=== PATIENT | female | born 1995 ===

== ENCOUNTER 2022-06-24 11:26 | Emergency (ER) | payer MEDICAID, SELFPAY ==
--- NOTE | ~2022-06-24 | XR_ITS ---
EXAMINATION: XR CHEST CLINICAL INFORMATION: Cough. COMPARISON: None available. TECHNIQUE: 2 views of the chest were obtained. FINDINGS: No significant abnormality is noted involving the heart, lungs, mediastinum, bony thorax or soft tissues. XR/XR chest 2V IMPRESSION: Unremarkable chest examination.
[2022-06-24 12:42] VITALS: BP 146/85; PULSE 94; RESP 20; TEMP 36.7; O2SAT 99; BMI 30.7
--- NOTE | 2022-06-24 12:57 | ED.ASTHMA ---
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 Patient states that they have had a cough for awhile now and their inhalers are no longer working at home. Patient denies any dizziness, lightheadedness, abdominal pain, nausea, vomiting, fever, chills, blurry vision, double vision, loss of vision, chest pain, back pain, night sweats, pain with urination, increased urinary frequency, increased urinary urgency, blood in her urine or stool, syncope or a near syncopal episode, recent trauma or falls, bowel incontinence, bladder incontinence, bowel retention, bladder retention, or any other complaints at this time. <ROXANE Vasquez - Last Filed: 06/24/22 16:04> Onset (ago): day(s) <ROXANE Vasquez Last Filed: 06/24/22 16:04> Severity: mild <ROXANE Vasquez Last Filed: 06/24/22 16:04> Related Data Current Asthma Therapy: inhaled bronchodilator <ROXANE Vasquez Last Filed: 06/24/22 16:04> Home Medications: Previous Rx's Medication Instructions Recorded albuterol sulfate 90 mcg/actuation 1 inh inhalation QID PRN shortness 06/24/22 aerosol inhaler of breath or wheezing #8.5 grams benzonatate 100 mg capsule 100 mg PO BID PRN cough 7 days #14 06/24/22 caps doxycycline hyclate 100 mg tablet 100 mg PO BID 7 days #14 tabs 06/24/22 prednisone 20 mg tablet 20 mg PO DAILY 7 days #7 tabs 06/24/22 <Lizzie Thomas NP - Last Filed: 06/24/22 13:00> Allergies/Adverse Reactions: Allergies Allergy/AdvReac Type Severity Reaction Status Date / Time No Known Allergies Allergy Verified 06/24/22 12:41 [No Known Allergies*] <Lizzie Thomas NP - Last Filed: 06/24/22 13:00> Review of Systems Constitutional: Constitutional: Reports no additional constitutional complaints, Denies chills, Denies fever(s) and Denies night sweats <ROXANE Vasquez - Last Filed: 06/24/22 16:04> Eyes: Eyes: Reports no additional eye complaints, Denies blurry vision, Denies change in vision, Denies diplopia, Denies eye discharge, Denies loss of vision and Denies eye pain <ROXANE Vasquez - Last Filed: 06/24/22 16:04> ENT: Denies dizziness <ROXANE Vasquez Last Filed: 06/24/22 16:04> Cardiovascular: Cardiovascular: Reports no additional cardiovascular complaints, Denies chest pain, Denies lightheadedness, Denies Loss of Consciousness and Denies dyspnea <ROXANE Vasquez - Last Filed: 06/24/22 16:04> Respiratory: Respiratory: Reports no additional respiratory complaints, Reports cough and Denies dyspnea <ROXANE Vasquez Last Filed: 06/24/22 16:04> Gastrointestinal: Gastrointestinal: Reports no additional gastrointestinal complaints, Denies abdominal pain, Denies melena, Denies hematochezia, Denies change in bowel habits and Denies change in stool character <ROXANE Vasquez Last Filed: 06/24/22 16:04> Genitourinary: Genitourinary: Denies hematuria, Denies urinary frequency, Denies dysuria, Denies urinary incontinence, Denies urinary hesitancy and Denies urinary urgency <ROXANE Vasquez Last Filed: 06/24/22 16:04> Musculoskeletal: Musculoskeletal: Reports no additional musculoskeletal complaints, Denies numbness and Denies tingling <ROXANE Vasquez - Last Filed: 06/24/22 16:04> Neurologic: Denies dizziness, Denies loss of vision, Denies numbness and Denies tingling <ROXANE Vasquez - Last Filed: 06/24/22 16:04> Psychiatric: Psychiatric: Reports no additional psychiatric complaints <ROXANE Vasquez - Last Filed: 06/24/22 16:04> Endocrine: Endocrine: Reports no additional endocrine complaints <ROXANE Vasquez - Last Filed: 06/24/22 16:04> Hematologic/Lymphatic: Hematologic/Lymphatic: Reports no additional hematologic/lymphatic complaints <ROXANE Vasquez - Last Filed: 06/24/22 16:04> Allergic/Immunologic: Allergic/Immunologic: Reports no additional allergic/immunologic complaints <ROXANE Vasquez - Last Filed: 06/24/22 16:04> PMFSH Past Medical History Attestation statement: The following information was validated with the patient. <ROXANE Vasquez - Last Filed: 06/24/22 16:04> Source: old records reviewed and nursing notes reviewed <ROXANE Vasquez - Last Filed: 06/24/22 16:04> Social History Social History: Social History Advance Directives: No Advance Directives Information Provided: Yes <Lizzie Thomas NP - Last Filed: 06/24/22 13:00> Physical Exam Vital Signs: Vital Signs: Last Vital Signs Temp 98.1 F 06/24/22 12:42 Pulse 94 06/24/22 12:42 Resp 06/24/22 12:42 BP 146/85 H 06/24/22 12:42 Pulse Ox 99 06/24/22 12:42 O2 Del Method Room Air 06/24/22 12:42 BMI result Body Mass Index 30.7 <Lizzie Thomas NP - Last Filed: 06/24/22 13:00> Vital Signs: Last Vital Signs Temp 98.1 F 06/24/22 12:42 Pulse 94 06/24/22 12:42 Resp 06/24/22 12:42 BP 146/85 H 06/24/22 12:42 Pulse Ox 99 06/24/22 12:42 O2 Del Method Room Air 06/24/22 12:42 BMI result Body Mass Index 30.7 <ROXANE Vasquez - Last Filed: 06/24/22 16:04> Const: General: cooperative, no acute distress, alert and awake <ROXANE Vasquez - Last Filed: 06/24/22 16:04> Nutritional Appearance: well nourished <ROXANE Vasquez - Last Filed: 06/24/22 16:04> Orientation/consciousness: patient oriented x3 <ROXANE Vasquez - Last Filed: 06/24/22 16:04> Limitations: no limitations <ROXANE Vasquez - Last Filed: 06/24/22 16:04> HEENT: Head: Yes normal to inspection and Yes atraumatic <ROXANE Vasquez - Last Filed: 06/24/22 16:04> Ears: hearing grossly normal bilaterally and external ears normal <ROXANE Vasquez - Last Filed: 06/24/22 16:04> General nose exam: Normal external nose present, no nasal discharge noted and no epistaxis <Uyen Barakat PA - Last Filed: 06/24/22 16:04> Face and sinus: Yes normal facial exam, No abrasion and No laceration <ROXANE Vasquez - Last Filed: 06/24/22 16:04> Mouth: Normal oral and palatal mucosa present, no drooling and no muffled voice <ROXANE Vasquez - Last Filed: 06/24/22 16:04> Eyes: General: appearance normal, both eyes and all related structures <ROXANE Vasquez - Last Filed: 06/24/22 16:04> Periorbital: periorbital findings normal <ROXANE Vasquez - Last Filed: 06/24/22 16:04> Eyelids: Yes eyelids normal <ROXANE Vasquez - Last Filed: 06/24/22 16:04> Conjunctivae: conjunctivae normal <ROXANE Vasquez - Last Filed: 06/24/22 16:04> Pupils: Equal, round and reactive pupils present <ROXANE Vasquez - Last Filed: 06/24/22 16:04> EOM: EOMs intact bilaterally <Uyen Barakat PA - Last Filed: 06/24/22 16:04> Neck: Neck: Yes normal visual inspection, Yes full ROM and Yes no lymphadenopathy <Uyen Barakat PA - Last Filed: 06/24/22 16:04> Chest: Chest palpation & inspection: normal inspection of the chest <Uyen Barakat PA - Last Filed: 06/24/22 16:04> Resp: Effort & Inspection: normal respiratory effort and able to speak in complete sentences <Uyen Barakat PA - Last Filed: 06/24/22 16:04> Auscultation: diminished lung sounds diffuse <Uyen Barakat PA - Last Filed: 06/24/22 16:04> GI: Inspection: Yes normal to inspection <Uyen Barakat PA - Last Filed: 06/24/22 16:04> Neuro: General: patient oriented x3 and moves all extremities <Uyen Barakat PA - Last Filed: 06/24/22 16:04> Cranial nerves: Yes Equal, round and reactive pupils present <Uyen Barakat PA - Last Filed: 06/24/22 16:04> Cognition (Neuro): normal cognition <Uyen Barakat PA - Last Filed: 06/24/22 16:04> Motor exam (neuro): 5/5 motor strength present throughout <Uyen Barakat PA - Last Filed: 06/24/22 16:04> Sensory Exam: Normal double simultaneous stimulation for sensation <Uyen Barakat PA - Last Filed: 06/24/22 16:04> Coordination: [id number] test normal <Uyen Barakat PA - Last Filed: 06/24/22 16:04> Extrem: General: Yes normal to inspection, Yes full ROM and Yes capillary refill normal <Uyen Barakat PA - Last Filed: 06/24/22 16:04> Psych: Appearance: grossly normal <Uyen Barakat PA - Last Filed: 06/24/22 16:04> Mental Status: mental status grossly normal <Uyen Barakat PA - Last Filed: 06/24/22 16:04> Affect: normal affect <Uyen Dickersonrohini PA - Last Filed: 06/24/22 16:04> Attitude: cooperative <ROXANE Vasquez - Last Filed: 06/24/22 16:04> Thought process: Normal thought process present <ROXANE Vasquez - Last Filed: 06/24/22 16:04> Thought content: Normal thought content present <ROXANE Vasquez - Last Filed: 06/24/22 16:04> Insight: Good insight present (Psych) <ROXANE Vasquez - Last Filed: 06/24/22 16:04> Course Course Course Narrative: This is a rapid medical exam. deferred additional HPi, ROS, PE to primary provider. 27 yo female with history of asthma with cough, congestion, headache, sneezing x 2 days. Using albuterol/nebs with continued symptoms. Usually triggered by allergies. Ran out of nasal spray. Brother is sick at home Will check COVID screen VSS <Lizzie Thomas NP - Last Filed: 06/24/22 13:00> Medications Administered Discontinued Medications Generic Name Dose Route Start Last Admin Trade Name Freq PRN Reason Stop Dose Admin Methylprednisolone Sodium Succinate 60 mg 06/24/22 13:12 06/24/22 13:26 Methylprednisolone Sod Succ 125 Mg/2 Ml Vial IM 06/24/22 13:13 60 mg ONCE ONE Administration <Lizzie Thomas NP - Last Filed: 06/24/22 13:00> Medications Administered Discontinued Medications Generic Name Dose Route Start Last Admin Trade Name Freq PRN Reason Stop Dose Admin Methylprednisolone Sodium Succinate 60 mg 06/24/22 13:12 06/24/22 13:26 Methylprednisolone Sod Succ 125 Mg/2 Ml Vial IM 06/24/22 13:13 60 mg ONCE ONE Administration <ROXANE Vasquez - Last Filed: 06/24/22 16:04> Medical Decision Making Medical Decision Making MDM Narrative: Patient is a 27 year old assigned female at with a history of asthma presenting to the emergency department today with a cough. Patient's physical exam showed diminished lung sounds throughout but was otherwise unremarkable. Patient's chest x-ray showed no acute process. Patient's COVID-19 swab was negative. I explained my physical exam findings as well as all test results to the patient. I answered all questions asked by the patient. Patient received IM Solu-medrol which she stated helped her symptoms significantly. I stressed the importance of the patient taking her medication as prescribed. I stressed the importance of the patient following up with her primary care provider. I stressed the importance of the patient returning to the emergency department immediately if her symptoms were to worsen or if she were to develop any dizziness, shortness of breath, difficulty breathing, chest pain, blurry vision, loss of vision, nausea, vomiting, abdominal pain, fever, chills, back pain, or any other complaints. Patient verbalized agreement and understanding with this treatment plan and discharge. <ROXANE Vasquez - Last Filed: 06/24/22 16:04> Differential Diagnosis Differential Diagnoses: The differential diagnosis associated with the presentation includes <ROXANE Vasquez - Last Filed: 06/24/22 16:04> asthma exacerbation <ROXANE Vasquez - Last Filed: 06/24/22 16:04> Lab Data MDM Lab Attestation statement: I reviewed the patient's lab results. <ROXANE Vasquez - Last Filed: 06/24/22 16:04> Labs: Lab Results 06/24/22 Range/Units 13:14 COVID-19 ([facility]) Negative (Negative) COVID-19 Clin Com See Note <Lizzie Thomas NP - Last Filed: 06/24/22 13:00> Lab Results 06/24/22 Range/Units 13:14 COVID-19 ([facility]) Negative (Negative) COVID-19 Clin Com See Note <ROXANE Vasquez - Last Filed: 06/24/22 16:04> Independent Interpretation I performed an independent interpretation of an: Plain X-Ray <ROXANE Vasquez - Last Filed: 06/24/22 16:04> Interpretation: My interpretation is in agreement with the radiologist's impression of this imaging study. EXAMINATION: XR CHEST CLINICAL INFORMATION: Cough. COMPARISON: None available. TECHNIQUE: 2 views of the chest were obtained. FINDINGS: No significant abnormality is noted involving the heart, lungs, mediastinum, bony thorax or soft tissues. XR/XR chest 2V IMPRESSION: Unremarkable chest examination. Dictated By: Naif Bryant MD Signed By: Electronically signed by Naif Bryant MD 06/24/22 1426 <ROXANE Vasquez - Last Filed: 06/24/22 16:04> Discharge Plan Discharge Clinical Impression: Asthma with acute exacerbation <Lizzie Thomas NP - Last Filed: 06/24/22 13:00> Patient Disposition: Home, Self-Care <Lizzie Thomas NP - Last Filed: 06/24/22 13:00> Instructions: Asthma (DC) <Lizzie Thomas NP - Last Filed: 06/24/22 13:00> Additional Instructions: Follow up with your primary care provider. Return to the emergency department immediately if your symptoms worsen or if you develop any dizziness, shortness of breath, difficulty breathing, chest pain, blurry vision, loss of vision, nausea, vomiting, abdominal pain, fever, chills, back pain, or any other complaints. Anahi un seguimiento con judd proveedor de atenci?n primaria. Regrese al departamento de emergencias de inmediato si mindy s?ntomas empeoran o si presenta mareos, falta de aire, dificultad para respirar, dolor de pecho, visi?n borrosa, p?rdida de la visi?n, n?useas, v?mitos, dolor abdominal, fiebre, escalofr?os, dolor de espalda o cualquier otras quejas. <Lizzie Thomas NP - Last Filed: 06/24/22 13:00> Prescriptions: New prednisone 20 mg tablet 20 mg PO DAILY 7 Days Qty: 7 0RF benzonatate 100 mg capsule 100 mg PO BID PRN (Reason: cough) 7 Days Qty: 14 0RF doxycycline hyclate 100 mg tablet 100 mg PO BID 7 Days Qty: 14 0RF albuterol sulfate 90 mcg/actuation HFA aerosol inhaler 1 inh inhalation QID PRN (Reason: shortness of breath or wheezing) Qty: 8.5 0RF <Lizzie Thomas NP - Last Filed: 06/24/22 13:00> Referrals: [facility] [Provider Group] (Call to establish and follow up with a primary care provider. If you already have a primary care provider, please follow up with them. Llame para establecer y hacer un seguimiento con un proveedor de atenci?n primaria. Si ya tiene un proveedor de atenci?n primaria, anahi un seguimiento con ?l.) [facility] [facility] [place] [Provider Group] (Call to establish and follow up with a primary care provider. If you already have a primary care provider, please follow up with them. Llame para establecer y hacer un seguimiento con un proveedor de atenci?n primaria. Si ya tiene un proveedor de atenci?n primaria, anahi un seguimiento con ?l.) [facility] [Provider Group] (Call to establish and follow up with a primary care provider. If you already have a primary care provider, please follow up with them. Llame para establecer y hacer un seguimiento con un proveedor de atenci?n primaria. Si ya tiene un proveedor de atenci?n primaria, anahi un seguimiento con ?l.) [facility] [Physician] - (Call to establish and follow up with a primary care provider. If you already have a primary care provider, please follow up with them. Llame para establecer y hacer un seguimiento con un proveedor de atenci?n primaria. Si ya tiene un proveedor de atenci?n primaria, anahi un seguimiento con ?l.) <Lizzie Thomas NP - Last Filed: 06/24/22 13:00> Stand Alone Forms: Work/School Release <Lizzie Thomas NP - Last Filed: 06/24/22 13:00> Interventions: ED Discharge Assessment Last Done: 06/24/22 14:09 <Lizzie Thomas NP - Last Filed: 06/24/22 13:00> Discharge Date/Time: 06/24/22 14:10 <Lizzie Thomas NP - Last Filed: 06/24/22 13:00> Print Language: Romanian <Lizzie Thomas NP - Last Filed: 06/24/22 13:00>
[2022-06-24] MEDS: methylPREDNISolone Sod Succ 125 MG/2 ML VIAL 60 MG IM (13:26)
[2022-06-24 13:39] LABS: COVID-19 Test Negative (Negative); IDNOW Serial# BCCEAD1C
== END 2022-06-24 14:10 | disposition home or self-care (01) ==
PROVIDERS: Nurse Practitioner Family; Emergency Provider Student in an Organized Health Care Education/Training Program
DX: J45.901 Unspecified asthma with (acute) exacerbation (principal); Z20.822 Contact with and (suspected) exposure to COVID-19; Z20.828 Contact with and (suspected) exposure to other viral communicable diseases; Z79.899 Other long term (current) drug therapy
CPT/HCPCS: 71046; 87635; 96372; 99282; 99284; J2930

== ENCOUNTER 2022-10-30 09:51 | Emergency (ER) | payer MEDICAID, SELFPAY ==
[2022-10-30 09:54] VITALS: BP 139/99; PULSE 87; RESP 19; TEMP 36.6; O2SAT 99; BMI 29.6
[2022-10-30 10:26] LABS: COVID-19 Test Positive (Negative); IDNOW Serial# 9DB6401D
[2022-10-30 10:35] LABS: IDNOW Serial# 08D9AD1C; Influenza A Negative (Negative); Influenza B2 Negative (Negative)
--- NOTE | 2022-10-30 11:27 | ED_ITS ---
HPI - URI/Sore Throat General Chief Complaint: Upper Respiratory Symptoms Stated Complaint: sore throat fever Time Seen by Provider: 10/30/22 11:05 Source: patient Mode of arrival: ambulatory Limitations: no limitations History of Present Illness HPI Narrative: 27 yo Mongolian speaking female who presents to the ER for evaluation of 3 days of sore throat, headaches, body aches, intermittent fevers and cough. Patient denies any known sick contacts. 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 She states she is vaccinated for COVID x2. She denies any shortness of breath, difficulty breathing, chest pain, nausea, vomiting, diarrhea, abdominal pain. She does report decreased appetite. MD elicited complaint: fever, cough and nasal congestion Onset (ago): day(s) (3) Consistency: progressively worsening Description of mucous: clear Able to tolerate fluids by mouth: Yes Exacerbating factors: exertion Relieving factors: OTC cold medicine Associated symptoms: fever, myalgias, headache, nasal congestion, sore throat and cough Treatments prior to arrival: none Related Data Previous Rx's Medication Instructions Recorded albuterol sulfate 90 mcg/actuation 1 inh inhalation QID PRN shortness 06/24/22 aerosol inhaler of breath or wheezing #8.5 grams benzonatate 100 mg capsule 100 mg PO BID PRN cough 7 days #14 06/24/22 caps doxycycline hyclate 100 mg tablet 100 mg PO BID 7 days #14 tabs 06/24/22 prednisone 20 mg tablet 20 mg PO DAILY 7 days #7 tabs 06/24/22 Allergies Allergy/AdvReac Type Severity Reaction Status Date / Time No Known Allergies Allergy Verified 10/30/22 09:54 [No Known Allergies*] Review of Systems Review of Systems: Yes all other systems are reviewed and are negative [facility] Social History Social History Advance Directives: No Advance Directives Information Provided: No Physical Exam Vital Signs: Vital Signs: Last Vital Signs Temp 98 F 10/30/22 09:54 Pulse 87 10/30/22 09:54 Resp 19 10/30/22 09:54 BP 139/99 H 10/30/22 09:54 Pulse Ox 99 10/30/22 09:54 O2 Del Method Room Air 10/30/22 09:54 BMI result Body Mass Index 29.6 Appearance: Alert. Oriented X3. No acute distress. Head: normocephalic, atraumatic. Eyes: Pupils equal, round and reactive to light. ENT: Pharynx normal. No tonsillar swelling or exudate. Neck: Normal inspection. Neck supple. CVS: Normal heart rate and rhythm. Pulses normal. Respiratory: No respiratory distress. Breath sounds normal. Skin: Skin warm and dry. Normal skin color. Normal skin turgor. No rashes. Extremities: No lower extremity edema. No joint swelling. no calf swelling or tenderness Neuro/psych: Oriented X 3. Grossly normal, nonfocal. Normal speech and cognition. Medical Decision Making Medical Decision Making [facility] Narrative: 27-year-old otherwise healthy female presents to the ER for evaluation of 3 days of URI symptoms. Vital signs are stable on arrival. Physical exam is unremarkable. Patient found to have COVID-19. She is vaccinated. She is low risk. We discussed diagnosis, symptomatic management, return precautions, using therapeutic support staff. At this time patient is stable for discharge home. Work note provided. Differential Diagnosis Differential Diagnoses: The differential diagnosis associated with the presentation includes strep, covid, flu, rsv, other viral syndrome, bronchitis, pneumonia, no evidence of peritonsillar abcsess or retropharyngeal abscess Lab Data [facility] Lab Attestation statement: I reviewed the patient's lab results. Labs: Lab Results 10/30/22 Range/Units 10:10 COVID-19 ([facility]) Positive A (Negative) COVID-19 Clin Com See Note Influenza Type A ([facility]) Negative (Negative) Influenza Type B ([facility]) Negative (Negative) Influenza A & B Note See Note External Record Review External record reviewed: Outpatient record and Prior outpatient labs Tests considered The following testing was considered but not selected: Consider chest x-ray however management would not change. Prescription Management I considered prescription management with: Antiviral Critical Care Time Critical Care Time Critical Care Time: No Discharge Plan Discharge Clinical Impression: COVID-19 Patient Disposition: Home, Self-Care Instructions: Covid-19 Viral Syndrome and Novel Coronavirus (ED) Hey/Ath Additional Instructions: You were found to be COVID-19 POSITIVE today. Your exam and oxygen levels were normal. Rest. Drink plenty of fluids. Do not go out in public while you are not feeling well. Take over the counter cold/flu medications as needed for your symptoms. Take Tylenol and/or Motrin as needed for fevers and body aches. Follow up with your doctor this week. If you develop new or worsening symptoms call 911 or come back to the ER for further evaluation. Se descubri? que hoy eres POSITIVO para COVID-19. Judd examen y niveles de ox?stacie fueron normales. Descansar. Beber mucho l?quido. No salgas en p?blico mientras no te sientas zaki. [place] medicamentos de venta manuel para el resfriado o la gripe seg?n sea necesar io para mindy s?ntomas. [place] Tylenol y/o Motrin seg?n sea necesario para la fiebre y los ignacio corporales. Yoly un seguimiento con judd m?dico esta semana. Si desarrolla s?ntomas nuevos o que empeoran, llame al 911 o regrese a la marnie de emergencias para gris evaluaci?n adicional. Prescriptions: No Action prednisone 20 mg tablet 20 mg PO DAILY 7 Days Qty: 7 0RF benzonatate 100 mg capsule 100 mg PO BID PRN (Reason: cough) 7 Days Qty: 14 0RF doxycycline hyclate 100 mg tablet 100 mg PO BID 7 Days Qty: 14 0RF albuterol sulfate 90 mcg/actuation HFA aerosol inhaler 1 inh inhalation QID PRN (Reason: shortness of breath or wheezing) Qty: 8.5 0RF Stand Alone Forms: Work/School Release Print Language: Mongolian
== END 2022-10-30 11:50 | disposition home or self-care (01) ==
PROVIDERS: Emergency Provider Emergency Medicine
DX: U07.1 COVID-19 (principal); Z79.899 Other long term (current) drug therapy
CPT/HCPCS: 87502; 87635; 99283

== ENCOUNTER 2023-12-18 21:26 | Emergency (ER) | payer MEDICAID, SELFPAY ==
[2023-12-18 21:29] VITALS: BP 144/83; PULSE 92; RESP 16; TEMP 36.9; O2SAT 98; BMI 32.0
== END 2023-12-19 00:24 | disposition left against medical advice (07) ==
PROVIDERS: Emergency Provider Emergency Medicine
DX: H92.01 Otalgia, right ear (principal)
CPT/HCPCS: 99281

== ENCOUNTER 2024-03-09 20:57 | Emergency (ER) | payer OTHER, SELFPAY ==
--- NOTE | 2024-03-09 | ECG_ITS ---
Test Reason : chest tightness Blood Pressure : */* mmHG Vent. Rate : 93 BPM Atrial Rate : 93 BPM P-R Int : 158 ms QRS Dur : 74 ms QT Int : 342 ms P-R-T Axes : 33 36 20 degrees QTcB Int : 425 ms Normal sinus rhythm Normal ECG No previous ECGs available Referred By: Generic ED Physician Electronically Signed By: TERE VAZQUEZ
[2024-03-09 21:00] VITALS: BP 146/100; PULSE 100; RESP 17; TEMP 36.4; O2SAT 98; BMI 31.7
[2024-03-09 21:23] LABS: MANUAL DIFF FLAG NO
[2024-03-09 21:27] LABS: Basophils Absolute Auto 0.1 X10*3/uL (0.0-0.2); Basophils Percent Auto 0.9 % (0-2); Eosinophils Absolute Auto 0.2 X10*3/uL (0.0-0.4); Eosinophils Percent Auto 2.7 % (0-4); Hematocrit 37.5 % (37.0-47.0); Hemoglobin 12.8 g/dl (12.0-16.0); Imm Gran Abs Auto 0.01 X10*3/uL (0.00-0.03); Imm Gran Pct Auto 0.1 % (0.0-0.4); Lymphocytes Absolute Auto 1.8 X10*3/uL (1.2-4.9); Lymphocytes Percent Auto 25.8 % (20-40); Mean Corpuscular HGB Conc 34.1 g/dl (31.0-35.0); Mean Corpuscular Hemoglobin 29.2 pg (27.0-33.0); Mean Corpuscular Volume 85.4 fL (80.0-98.0); Mean Platelet Volume 9.7 fL (9.4-12.3); Monocytes Absolute Auto 0.6 X10*3/uL (0.1-1.2); Monocytes Percent Auto 8.4 % (2-11); Neutrophils Absolute Auto 4.3 x10*3/uL (2.0-8.3); Neutrophils Percent Auto 62.1 % (45-73); Platelet Count 304 X10*3/uL (160-400); Red Blood Count 4.39 X10*6/uL (4.20-5.50); Red Cell Distribution Width 12.4 % (11.0-16.0); White Blood Count 6.9 X10*3/uL (4.8-10.8)
[2024-03-09 21:40] LABS: Alanine Aminotransferase 18 U/L (0-31); Albumin Level 4.3 g/dL (3.5-5.0); Alkaline Phosphatase 85 U/L (39-117); Anion Gap 10 (12-20); Aspartate Amino Transferase 21 U/L (5-31); Bilirubin Total 0.2 mg/dL (0.0-1.0); Blood Urea Nitrogen 10 mg/dL (9-16); Carbon Dioxide 27 mmol/L (22-29); Chloride 108 mmol/L (96-108); Creatinine Clr Calc Pharmacy 102.4; Estimated Glomerular Filt Rate > 60; Glucose Random 94 mg/dL (60-115); Potassium 3.9 mmol/L (3.3-5.1); Sodium 141 mmol/L (135-145)
[2024-03-09 21:43] LABS: IDNOW Serial# 6674DD1D
[2024-03-09 21:44] LABS: Strep A Nucleic Acid Negative (Negative)
[2024-03-09 21:48] LABS: Troponin-I High Sensitivity < 2.7 ng/L (<3.5-17.0)
[2024-03-09 21:56] VITALS: BP 137/96; PULSE 99; RESP 16; TEMP 37.2; O2SAT 98
[2024-03-09 22:02] LABS: Influenza A PCR NEGATIVE (Negative); Influenza B PCR NEGATIVE (Negative); Resp Syncy Virus RNA Qual PCR POSITIVE (Negative); SARS COV2 PCR INHOUSE NEGATIVE (Negative)
--- NOTE | 2024-03-09 22:18 | ED.URI ---
HPI - URI/Sore Throat General Chief Complaint: Upper Respiratory Symptoms Stated Complaint: Asthma/Vomiting-Flu Like symptoms Time Seen by Provider: 03/09/24 22:00 Source: patient Mode of arrival: ambulatory Limitations: no limitations History of Present Illness ED Provider: HPI Narrative: Patient with history of asthma been coughing lately with wheezing with nausea vomiting after cough for last 4 days no fever no chills cough is mostly dry Related Data Previous Rx's ?Medication ?Instructions ?Recorded albuterol sulfate 90 mcg/actuation 1 inh inhalation QID PRN shortness 06/24/22 aerosol inhaler of breath or wheezing #8.5 grams benzonatate 100 mg capsule 100 mg PO BID PRN cough 7 days #14 06/24/22 caps doxycycline hyclate 100 mg tablet 100 mg PO BID 7 days #14 tabs 06/24/22 prednisone 20 mg tablet 20 mg PO DAILY 7 days #7 tabs 06/24/22 albuterol sulfate 2.5 mg/3 mL 2.5 mg (3 mL) inhalation Q4-6H PRN 03/09/24 (0.083 %) solution for nebulization shortness of breath or wheezing #90 mL albuterol sulfate 90 mcg/actuation 2 puff inhalation Q6H PRN 03/09/24 aerosol inhaler shortness of breath or wheezing #8.5 grams benzonatate 200 mg capsule 200 mg PO TID PRN cough #30 caps 03/09/24 prednisone 20 mg tablet 40 mg (2 x 20 mg) PO DAILY #10 tabs 03/09/24 Allergies Allergy/AdvReac Type Severity Reaction Status Date / Time No Known Allergies Allergy Verified 03/09/24 21:04 [No Known Allergies*] Review of Systems Review of Systems: Yes all other systems are reviewed and are negative PMFSH Social History Social History Use of substances other than those prescribed or required for medical reasons: No Advance Directives: No Advance Directives Information Provided: No Do you have a plan to hurt others: No Plan Patient : No Physical Exam Vital Signs: Vital Signs: Last Vital Signs Temp 98.9 F 03/09/24 23:36 Pulse 103 H 03/09/24 23:36 Resp 18 03/09/24 23:36 BP 134/92 H 03/09/24 23:36 Pulse Ox 99 03/09/24 23:36 O2 Del Method Room Air 03/09/24 21:56 BMI result Body Mass Index 31.7 Appearance: Alert. Oriented X3. No acute distress. ENT: Pharynx normal. Oral Mucosa moist clear rhinorrhea Neck: Normal inspection. Neck supple. CVS: Normal heart rate and rhythm. Pulses normal. Respiratory: No respiratory distress. Equal air entry bilateral, bilateral wheezing with frequent cough Skin: Skin warm and dry. Normal skin color. Normal skin turgor. Extremities: No lower extremity edema. Neuro: Oriented X 3. Medications Administered Discontinued Medications Generic Name Dose Route Start Last Admin Trade Name Freq PRN Reason Stop Dose Admin Albuterol Sulfate 2.5 mg/ 0 mg 03/09/24 22:18 03/09/24 22:35 Albuterol/Ipratropium 3 ml INHALE 03/09/24 22:19 1 dose ONCE ONE Administration Guaifenesin/Codeine Phosphate 10 ml 03/09/24 22:19 03/09/24 22:25 Guaifen/Codeine Sf 200/20/10ml 10 Ml Liquid PO 03/09/24 22:20 10 ml ONCE ONE Administration Prednisone 60 mg 03/09/24 22:18 03/09/24 22:25 Prednisone 20 Mg Tablet PO 03/09/24 22:19 60 mg ONCE ONE Administration Medical Decision Making Medical Decision Making [facility] [place] Narrative: Patient with asthma with RSV bronchiolitis improved after nebulizing treatment prednisone will discharge patient home on supportive treatment Lab Data [facility] [place] Lab Attestation statement: I reviewed the patient's lab results. 03/09/24 21:18 03/09/24 21:18 Labs: Lab Results 03/09/24 Range/Units 21:18 WBC 6.9 (4.8-10.8) X10*3/uL RBC 4.39 (4.20-5.50) X10*6/uL Hgb 12.8 (12.0-16.0) g/dl Hct 37.5 (37.0-47.0) % MCV 85.4 (80.0-98.0) fL MCH 29.2 (27.0-33.0) pg MCHC 34.1 (31.0-35.0) g/dl RDW 12.4 (11.0-16.0) % Plt Count 304 (160-400) X10*3/uL MPV 9.7 (9.4-12.3) fL Immature Gran % (Auto) 0.1 (0.0-0.4) % Neut % (Auto) 62.1 (45-73) % Lymph % (Auto) 25.8 (20-40) % [place] % (Auto) 8.4 (2-11) % Eos % (Auto) 2.7 (0-4) % Baso % (Auto) 0.9 (0-2) % Lymph # (Auto) 1.8 (1.2-4.9) X10*3/uL [place] # (Auto) 0.6 (0.1-1.2) X10*3/uL Eos # (Auto) 0.2 (0.0-0.4) X10*3/uL Baso # (Auto) 0.1 (0.0-0.2) X10*3/uL Abs Immat Gran (auto) 0.01 (0.00-0.03) X10*3/uL Absolute Neuts (auto) 4.3 (2.0-8.3) x10*3/uL Absolute Nucleated RBC 0.000 (0.0-0.012) X10*3/uL Nucleated RBC % (auto) 0.0 (0.0-0.2) /100WBC Sodium 141 (135-145) mmol/L Potassium 3.9 (3.3-5.1) mmol/L Chloride 108 (96-108) mmol/L Carbon Dioxide 27 (22-29) mmol/L Anion Gap 10 L (12-20) BUN 10 (9-16) mg/dL Creatinine 0.75 (0.5-1.4) mg/dL Estim Creat Clear Calc 102.4 Estimated GFR > 60 Random Glucose 94 (60-115) mg/dL Calcium 9.0 (8.4-10.2) mg/dL Total Bilirubin 0.2 (0.0-1.0) mg/dL AST 21 (5-31) U/L ALT 18 (0-31) U/L Alkaline Phosphatase 85 (39-117) U/L Troponin I High Sens < 2.7 (<3.5-17.0) ng/L Total Protein 8.0 (6.5-8.0) g/dL Albumin 4.3 (3.5-5.0) g/dL Influenza Type A (PCR) NEGATIVE (Negative) Influenza Type B (PCR) NEGATIVE (Negative) RSV RNA Qual (PCR) POSITIVE A (Negative) SARS-CoV-2 RNA (RT-PCR) NEGATIVE (Negative) S. pyogenes GrpA UMER Negative (Negative) Independent Interpretation I performed an independent interpretation of an: Plain X-Ray Radiology Impression Discussion of test interpretation with radiology: I have reviewed the radiologist's reading. Radiologist Impression: No infiltrate Discharge Plan Discharge Clinical Impression: Respiratory syncytial virus (RSV) bronchiolitis Patient Disposition: Home, Self-Care Instructions: Respiratory Syncytial Virus (ED), Asthma (ED) Additional Instructions: Continue to use your nebulizer/inhaler Humidified air as advised Cough drops as prescribed Prednisone as prescribed Report to the ER if worsening of symptoms Prescriptions: New benzonatate 200 mg capsule 200 mg PO TID PRN (Reason: cough) Qty: 30 0RF albuterol sulfate 2.5 mg /3 mL (0.083 %) solution for nebulization 2.5 mg inhalation Q4-6H PRN (Reason: shortness of breath or wheezing) Qty: 90 0RF prednisone 20 mg tablet 40 mg PO DAILY Qty: 10 0RF albuterol sulfate 90 mcg/actuation HFA aerosol inhaler 2 puff inhalation Q6H PRN (Reason: shortness of breath or wheezing) Qty: 8.5 0RF No Action prednisone 20 mg tablet 20 mg PO DAILY 7 Days Qty: 7 0RF benzonatate 100 mg capsule 100 mg PO BID PRN (Reason: cough) 7 Days Qty: 14 0RF doxycycline hyclate 100 mg tablet 100 mg PO BID 7 Days Qty: 14 0RF albuterol sulfate 90 mcg/actuation HFA aerosol inhaler 1 inh inhalation QID PRN (Reason: shortness of breath or wheezing) Qty: 8.5 0RF Stand Alone Forms: Work/School Release Print Language: Czech
[2024-03-09] MEDS: predniSONE 20 MG TABLET 60 MG PO (22:25)
[2024-03-09] MEDS: guaiFEN/Codeine SF 200/20/10ML 10 ML LIQUID PO (22:25)
[2024-03-09] MEDS: Albuterol Sulfate 2.5 MG, Albuterol/Iprat 2.5/0.5MG 3 ML 3 ML INHALE (22:35)
[2024-03-09 22:37] VITALS: PULSE 83; RESP 18; O2SAT 97
[2024-03-09 23:36] VITALS: BP 134/92; PULSE 103; RESP 18; TEMP 37.2; O2SAT 99
[2024-03-10 00:05] VITALS: BP 130/87; PULSE 97; RESP 16; TEMP 36.9; O2SAT 98
[2024-03-10 00:11] VITALS: BP 130/87; PULSE 97; RESP 16; TEMP 36.9; O2SAT 98
== END 2024-03-10 00:12 | disposition home or self-care (01) ==
PROVIDERS: Emergency Provider Internal Medicine
DX: J21.0 Acute bronchiolitis due to respiratory syncytial virus (principal); R05.9 Cough, unspecified; R11.2 Nausea with vomiting, unspecified; Z03.818 Encounter for observation for suspected exposure to other biological agents ruled out
CPT/HCPCS: 0241U; 80053; 84484; 85025; 87651; 93005; 94640; 99284; 99285

== ENCOUNTER → 2024-03-09 21:11 | Outpatient (BNV) | payer OTHER, SELFPAY | PROVIDERS: Emergency Provider Internal Medicine; Visit Provider Internal Medicine | DX: R07.89 Other chest pain (principal) | CPT/HCPCS: 93010 ==

== ENCOUNTER 2025-01-25 15:09 | Outpatient (AMB) | payer OTHER, SELFPAY ==
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
[2025-01-25 15:26] VITALS: BP 120/82; PULSE 98; RESP 15; TEMP 36.8; O2SAT 99; BMI 30.4
--- OUTSIDE RECORDS SUMMARY | 2025-01-25 19:27 | XMS_ITS | Clinical Summary ---
Author Organization [facility] Address [address] [place] [phone] Phone Care Team Providers Care Leak Inspector Name Role Phone Physician, No Pcp Primary Care Provider Unavaila ble Allergies No known active allergies Medications No known medications Social History Tobacco Use Types Packs/Day Years Used Date Smoking Tobacco: Never Smokeless Tobacco: Never Tobacco Cessation:Counseling Given: Not Answered Comments Unknown Sex and Gender Information Value Date Recorded Sex Assigned at Not on file Legal Sex Female 11:07 AM EDT Gender Identity Not on file Sexual Orientation Not on file Last Filed Vital Signs Vital Sign Reading Time Taken Comments Blood Pressure 137/83 12/30/2023 10:32 AM EST Pulse 78 12/30/2023 10:32 AM EST Temperature 37.2 C (99 F) 12/30/2023 7:58 AM EST Respiratory Rate 18 12/30/2023 10:32 AM EST Oxygen Saturation 100% 12/30/2023 10:32 AM EST Inhaled Oxygen Concentration - - Weight 74.8 kg (165 lb) 12/30/2023 7:57 AM EST Height 154.9 cm (5' 1 ) 12/30/2023 7:57 AM EST Body Mass Index 31.18 12/30/2023 7:57 AM EST Plan of Treatment Health Maintenance Due Date Last Done Comments DTaP,Tdap,and Td Vaccines (1 - Tdap) 2013 Hepatitis B Vaccines (1 of 3 - 19+ 3-dose series) 2013 Cervical Cancer Screening: P ap Smear 2015 HPV Vaccines (1 - 3-dose SCD M series) 2021 HIV Screening 10/08/2023 Hepatitis C Screening 10/08/2023 Social Influencers of Health Screening 10/08/2023 Depression Screening 02/11/2024 COVID-19 Vaccine (1 - 2024-2 6 season) 2024 Influenza Vaccine (#1) 2024 RSV Immunization Adult Patie nts (1 - 1-dose 75+ series) 2069 HIB Vaccines Aged Out No longer eligi ble based on patient's age to complete this topic Hepatitis A Vaccines Aged Out No long er eligible based on patient's age to complete this topic IPV Vaccines Aged Out No longer eligi ble based on patient's age to complete this topic MMR Vaccines Aged Out No longer eligi ble based on patient's age to complete this topic Meningococcal ACWY Vaccine Aged Out N o longer eligible based on patient's age to complete this topic Meningococcal B Vaccine Aged Out No l onger eligible based on patient's age to complete this topic Pneumococcal Vaccine: Pediat rics (0 to 5 Years) and At-Risk Patients (6 to 49 Years) Aged Out No longer eligible b ased on patient's age to complete this topic RSV Immunization Patients Un seng 20 months Aged Out No longer eligible b ased on patient's age to complete this topic Varicella Vaccines Aged Out No longer eligible based on patient's age to complete this topic Insurance [place] [address] [place] [id number] MEDICAID [place] Care Teams Leak Inspector Relationship Specialty Start Date End Date Physician, No Pcp PCP - General 12/30/23
--- OUTSIDE RECORDS SUMMARY | 2025-01-25 19:27 | XMS_ITS ---
Author Name [facility] Organization Unknown History of Medication Use Medication Directions Dispensed Refills Start Date End Date Stat us ibuprofen 11/12/2024 active Augmentin 11/12/2024 active Ventolin HFA 03/09/2024 active albuterol sulfate 03/09/2024 act cruz Encounters Encounter Type Encounter Reason Primary Diagnosis Location Date Ambulatory TBE Injury, unspecif ied, initial encounter [facility]) 11/12/2024 Emergency Unspecified ovar megan cyst, left side [employer] [facility] 01/20/2022 Care Team Organization Name Specialty Phone Email Start Date End Da te [facility] 11/11/2024 [facility]10[facility]2024 [facility] 2023 [employer] [facility] NO PCP Primary Care 01/20/2022 01/20/2022 [employer] [facility] 01/20/2022 [facility] 12/12/2021
== END 2025-01-25 16:02 | disposition home or self-care (01) ==
LOC: HO.HMCFM 15:10
PROVIDERS: Visit Provider Family Medicine
DX: J45.909 Unspecified asthma, uncomplicated (principal); N92.6 Irregular menstruation, unspecified; I10 Essential (primary) hypertension; Z00.00 Encounter for general adult medical examination without abnormal findings; S46.912A Strain of unspecified muscle, fascia and tendon at shoulder and upper arm level, left arm, initial encounter

== ENCOUNTER → 2025-01-25 15:09 | Outpatient (BNVA) | payer OTHER, SELFPAY | PROVIDERS: Visit Provider Family Medicine | DX: Z00.00 Encounter for general adult medical examination without abnormal findings (principal); J45.909 Unspecified asthma, uncomplicated; N92.6 Irregular menstruation, unspecified; I10 Essential (primary) hypertension; S46.912A Strain of unspecified muscle, fascia and tendon at shoulder and upper arm level, left arm, initial encounter; X58.XXXA Exposure to other specified factors, initial encounter; Y93.9 Activity, unspecified; Y92.9 Unspecified place or not applicable; Y99.9 Unspecified external cause status | CPT/HCPCS: 96127; 99202 ==

== ENCOUNTER 2025-01-26 11:57 | Outpatient (REF) | payer OTHER, SELFPAY ==
--- NOTE | ~2025-01-26 | XR_ITS ---
EXAMINATION: XR SHOULDER, LEFT CLINICAL INFORMATION: S46.912A - Strain of unspecified muscle, fascia and tendon at shoulder a... COMPARISON: X-ray 10/30/2018 TECHNIQUE: AP external rotation, Grashey, scapular Y, and axillary views of the left shoulder. FINDINGS: No acute fracture or dislocation. Glenohumeral and acromioclavicular alignment is anatomic with preserved joint space. No abnormal soft tissue calcifications. XR/XR shoulder LT min 2V IMPRESSION: No acute osseous findings Electronically signed by: Hollis Dumont MD 01/26/2025 04:50 PM EST
[2025-01-26 12:41] LABS: MANUAL DIFF FLAG NO
[2025-01-26 13:04] LABS: Hematocrit 38.1 % (37.0-47.0); Hemoglobin 12.5 g/dl (12.0-16.0); Imm Gran Abs Auto 0.02 X10*3/uL (0.00-0.03); Imm Gran Pct Auto 0.4 % (0.0-0.4); Lymphocytes Absolute Auto 1.2 X10*3/uL (1.2-4.9); Mean Corpuscular HGB Conc 32.8 g/dl (31.0-35.0); Mean Corpuscular Hemoglobin 28.5 pg (27.0-33.0); Mean Corpuscular Volume 87.0 fL (80.0-98.0); NRBC Abs Auto 0.000 X10*3/uL (0.0-0.012); NRBC Pct Auto 0.0 /100WBC (0.0-0.2); Platelet Count 307 X10*3/uL (160-400); Red Blood Count 4.38 X10*6/uL (4.20-5.50); White Blood Count 5.0 X10*3/uL (4.8-10.8)
[2025-01-26 13:25] LABS: Appearance Urine Clear; Glucose Urine UA Negative (Negative); PH 6.0 (5.0-9.0); Specific Gravity - Urine >= 1.030 (1.005-1.025); UMIC TRIGGER UACC YES
[2025-01-26 13:42] LABS: Alanine Aminotransferase 14 U/L (0-31); Albumin Level 4.5 g/dL (3.5-5.0); Alkaline Phosphatase 78 U/L (39-117); Anion Gap 9 (12-20); Aspartate Amino Transferase 22 U/L (5-31); Blood Urea Nitrogen 9 mg/dL (9-16); Calcium 9.2 mg/dL (8.4-10.2); Carbon Dioxide 26 mmol/L (22-29); Chloride 108 mmol/L (96-108); Cholesterol 142 mg/dL (<200); Estimated Glomerular Filt Rate > 60; HDL Cholesterol 44 mg/dL (>40); Potassium 3.5 mmol/L (3.3-5.1); Sodium 139 mmol/L (135-145); Total Protein 7.7 g/dL (6.5-8.0); Triglycerides 98 mg/dL (<150)
[2025-01-26 13:51] LABS: Microalbum/Creatinine Ratio Ur 5.6 ug/mg cr (<30)
[2025-01-26 15:25] LABS: CT PCR Urine NOT DETECTED (Not Detect.); NG PCR Urine NOT DETECTED (Not Detect.)
--- OUTSIDE RECORDS SUMMARY | 2025-01-26 15:51 | XMS_ITS | Clinical Summary ---
Author Organization [facility] Address [address] [place] [phone] Phone Care Team Providers Care Continuous Drier Helper Name Role Phone Physician, No Pcp Primary [...] complete this topic Insurance [place] Care Teams Continuous Drier Helper Relationship Specialty Start Date End Date Physician, No Pcp PCP - General 12/30/23
--- OUTSIDE RECORDS SUMMARY | 2025-01-26 15:51 | XMS_ITS | Clinical Summary ---
Author Organization Formerly [facility] Address [address] [place] [address] Care Team Providers Care Zipper Lining Folder Name Role Phone Pcp, No Primary Care Provider Unavailabl e Allergies No known active allergies Medications ibuprofen (MOTRIN) 800 mg tablet Take 1 tablet (800 mg total) by mouth 4 times daily (every 6 hours) as needed for mild pain. 30 tablet Active ondansetron (ZOFRAN-ODT) 4 MG disintegrating tablet Take 1 tablet (4 mg total) by mouth 3 times daily (every 8 hours) as needed for nausea or vomiting. Place tablet on tongue to dissolve. 10 tablet 2 Active Social History Tobacco Use Types Packs/Day Years Used Date Smoking Tobacco: Never Assessed Comments Unknown Sex and Gender Information Value Date Recorded Sex Assigned at Not on file Legal Sex Female 11:19 AM EST Gender Identity Not on file Sexual Orientation Not on file Last Filed Vital Signs Vital Sign Reading Time Taken Comments Blood Pressure 126/73 01/20/2022 7:21 PM EST Pulse 88 01/20/2022 7:21 PM EST Temperature 36 C (96.8 F) 01/20/2022 11:28 AM EST Respiratory Rate 14 01/20/2022 7:21 PM EST Oxygen Saturation 100% 01/20/2022 7:21 PM EST Inhaled Oxygen Concentration - - Weight - - Height - - Body Mass Index - - Plan of Treatment Health Maintenance Due Date Last Done Comments Hepatitis C Virus Screening 1994 HIV Screening 2007 DTaP/Tdap/Td Vaccines (1 - Tdap) 2013 Hepatitis B Vaccines (1 of 3 - 19+ 3-dose series) 2013 Pap Smear (Ages 21-65) 2015 Influenza Vaccine 09/10/2024 COVID-19 Vaccine ( - 2024-2 6 season) 2024 08/14/2020, 07/24/2020 HPV Vaccines (No Doses Required) Completed Pneumococcal Vaccine: Pediatric (0-5 Years) and At-Risk Patients (6 to 49 Years) Aged Out No longer eligible b ased on patient's age to complete this topic Insurance [facility] Care Teams Zipper Lining Folder Relationship Specialty Start Date End Date Pcp, No PCP - General General Medicine 01/20/22
[2025-01-27 04:51] LABS: HBS Num1 0.00 mIU/mL (0-7.99); HBc Num1 0.07 S/CO (0.00-0.79); HIV Num 1 0.07 S/CO (0.00-0.99); ~HepC Num1 0.09 S/CO (0.00-0.79); ~Hepatitis B Surface Antibody NONREACTIVE (Nonreactive); ~Hepatitis C Antibody Nonreactive (Nonreactive)
[2025-01-27 04:57] LABS: Syphilis Screen Reactive (Nonreactive)
[2025-01-27 13:32] LABS: HBsAGNum1 0.23 S/CO (0.00-0.99); Hepatitis B Surface Antigen Negative (Negative)
== END 2025-01-26 11:58 | disposition home or self-care (01) ==
LOC: HO.LAB 11:57
PROVIDERS: PCP Family Medicine; Visit Provider Family Medicine
DX: Z00.00 Encounter for general adult medical examination without abnormal findings (principal); S46.912A Strain of unspecified muscle, fascia and tendon at shoulder and upper arm level, left arm, initial encounter; I10 Essential (primary) hypertension; Z01.84 Encounter for antibody response examination; Z20.2 Contact with and (suspected) exposure to infections with a predominantly sexual mode of transmission; Z11.4 Encounter for screening for human immunodeficiency virus [HIV]; Z11.59 Encounter for screening for other viral diseases; X58.XXXA Exposure to other specified factors, initial encounter
CPT/HCPCS: 73030; 80053; 80061; 81001; 82043; 82570; 84443; 85025; 86592; 86704; 86706; 86780; 86803; 87340; 87389; 87491; 87591